=== PATIENT | male | born 1985 | race Caucasian/White ===

== ENCOUNTER 2016-05-02 23:55 | Emergency (ER) | payer OTHER ==
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
--- NOTE | 2016-05-03 01:48 | ED MED RECONCILIATION SUMMARY ---
Patient: MICHAEL CASTRO Medication Reconciliation Report [facility] VisitID: [id number] [address] [place] [address] 30y, M Registration Date/Time: 05/03/2016 Weight: 99.7 kg Height/Length: 69 in. BMI: 32.5 ALLERGIES: No Known Drug Allergy The patient's Home Medications are listed below: THE FOLLOWING MEDICATIONS NEED TO BE RECONCILED: Citalopram Hydrobromide Oral Hypertension medication Omeprazole Oral The source(s) of the original Home Medication information: Not obtained. The following Medications were given to the patient in the Emergency Department: None. The following Medications were prescribed to the patient: Motrin (available over the counter): take according to label instructions. -- Samy Sanz MD Flexeril 10 mg: Take 1 orally every 8 hours as needed for muscle spasm. Dispense twenty (20). No refills. Substitution is permissible. -- Samy Sanz MD
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
--- NOTE | 2016-05-03 01:48 | ED MED RECONCILIATION SUMMARY ---
Patient: MICHAEL CASTRO Medication Reconciliation Report [facility] VisitID: [id number] [address] [place] [address] 30y, M Registration Date/Time: 05/03/2016 Weight: 99.7 kg Height/Length: 69 in. BMI: 32.5 ALLERGIES: No Known Drug Allergy The patient's Home Medications are listed below: THE FOLLOWING MEDICATIONS NEED TO BE RECONCILED: Citalopram Hydrobromide Oral Hypertension medication Omeprazole Oral The source(s) of the original Home Medication information: Not obtained. The following Medications were given to the patient in the Emergency Department: None. The following Medications were prescribed to the patient: Motrin (available over the counter): take according to label instructions. -- Samy Sanz MD Flexeril 10 mg: Take 1 orally every 8 hours as needed for muscle spasm. Dispense twenty (20). No refills. Substitution is permissible. -- Samy Sanz MD
--- NOTE | 2016-05-03 01:48 | ED MAR SUMMARY ---
..... Medication Administration Record [facility] [address] [place], [place] [id number] Patient: MICHAEL CASTRO Visit ID: [id number] 30y, M Weight: 99.7 kg Height/Length: 69 in BMI: 32.5 ALLERGIES: No Known Drug Allergy
--- NOTE | 2016-05-03 01:48 | ED MAR SUMMARY ---
..... Medication Administration Record [facility] [address] [place], [place] [id number] Patient: MICHAEL CASTRO Visit ID: [id number] 30y, M Weight: 99.7 kg Height/Length: 69 in BMI: 32.5 ALLERGIES: No Known Drug Allergy
== END 2016-05-03 01:10 | disposition home or self-care (01) ==
LOC: ED SRH 23:55
DX: S16.1XXA Strain of muscle, fascia and tendon at neck level, initial encounter (principal); R51 Headache; V43.52XA Car driver injured in collision with other type car in traffic accident, initial encounter; Y92.410 Unspecified street and highway as the place of occurrence of the external cause; Y99.8 Other external cause status